=== PATIENT | male | born 1945 | race Caucasian/White ===

== ENCOUNTER 2016-10-31 13:24 | Emergency (ER) | payer MEDICARE, BC ==
[2016-10-31] MEDS ORDERED: SODIUM CHLORIDE 0.9% 1,000 ML ONE ×2 (15:06→16:14)
[2016-10-31] MEDS ORDERED: ONDANSETRON 4 MG/2ML 2 ML VIAL ONE (15:06)
[2016-10-31 15:24] LABS: ABSOLUTE NEUTROPHIL COUNT 2.7 K/mm3 (1.8-7.7); BASO % 0.4 % (0.2-1.0); EOS % 0.4 % (0.9-2.9); HEMATOCRIT 42.7 % (32.0-52.0); HEMOGLOBIN 14.4 gm/l (14.0-18.0); IMM NEUT% 0.4 % (0-1); LYMPH # 1.6 (1.0-4.8); LYMPH % 31.2 % (15-45); MEAN CELL VOLUME 92.6 fl (80.0-94.0); MEAN CORPUSCULAR HEMOGLOBIN 31.2 pg (27.0-31.0); MEAN CORPUSCULAR HGB CONC 33.7 g/dl (33.0-37.0); MEAN PLATELET VOLUME 10.1 fl (7.4-10.4); MONO # 0.7 (0.0-0.8); MONO % 14.3 % (4-12); NEUT % 53.3 % (43-75); PLATELET COUNT 184 K/mm3 (130-400); RED CELL DISTRIBUTION WIDTH 12.8 % (11.5-14.5)
[2016-10-31 15:33] LABS: ALB/GLOB RATIO 1.4 (>1.0); ALBUMIN 3.8 gm/dL (3.5-5.7); CALCIUM 10.3 mg/dL (8.6-10.3)
== END 2016-10-31 17:17 | disposition home or self-care (01) ==
LOC: ED 13:24
DX: E86.0 Dehydration (principal); G89.4 Chronic pain syndrome
CPT/HCPCS: 85025; 80053; 83735; 99283 ×2; 96374; 96361; J2405; J7030 ×2